=== PATIENT | male | born 1935 | race Native Hawaiian/Other Pacific Islander ===

== ENCOUNTER 2022-07-23 11:47 | Inpatient (IN) | payer OTHER ==
[~2022-07-23] VITALS: Ht 160 cm; Wt 69.4 kg
[2022-07-23] MEDS ORDERED: ACETAMINOPHEN 500 MG TABLET PO ONE (12:00)
[2022-07-23] MEDS ORDERED: 0.9% SODIUM CHLORIDE 10 ML SYRINGE IVP PRN (12:00)
[2022-07-23] MEDS ORDERED: CefTRIAXone 1 GM/DEXTROSE 50 ML IV ONE (12:00)
[2022-07-23] MEDS ORDERED: SODIUM CHLORIDE 0.9% 2,100 ML IV ONE (12:00)
[2022-07-23 12:07] LABS: BASOPHILS % (AUTO) 0.9 % (0.0-2.0); EOSINOPHILS % (AUTO) 0.7 % (1.0-6.0); HEMATOCRIT 47.7 % (41-53); HEMOGLOBIN 14.7 g/dL (13.5-17.5); LYMPHOCYTES # (AUTO) 1.1 K/uL (1.0-4.8); LYMPHOCYTES % (AUTO) 10.1 % (22.0-44.0); MEAN CORPUSCULAR HEMOGLOBIN 24.2 pg (26.0-34.0); MEAN CORPUSCULAR HGB CONC 30.8 G/dL (31.0-37.0); MEAN CORPUSCULAR VOLUME 79 fL (80-100); MONOCYTES # (AUTO) 0.9 K/uL (0.1-1.0); MONOCYTES % (AUTO) 8.2 % (2.0-9.0); NEUTROPHILS # (AUTO) 8.7 K/uL (1.8-7.7); NEUTROPHILS % (AUTO) 80.1 % (40.0-70.0); PLATELET COUNT (AUTO) 195 K/uL (150-450); RED BLOOD CELL COUNT(AUTO) 6.06 MIL/uL (4.50-5.90); RED CELL DISTRIBUTION WIDTH 17.9 % (11.5-14.5)
[2022-07-23] MEDS ORDERED: ACETAMINOPHEN 1000 MG/ISO-OSM 100 ML IV ONE (12:15)
[2022-07-23 12:17] LABS: ANION GAP 12 mmol/L (8-16); CALCIUM, TOTAL 9.6 mg/dL (8.8-10.5); CARBON DIOXIDE 28 mmol/L (22-29); CHLORIDE 101 mmol/L (98-107); CREATININE 1.18 mg/dL (0.60-1.30); GLOMERULAR FILTR. RATE CALC 59 mL/min (>60); GLUCOSE,RANDOM 165 mg/dL (70-110); POTASSIUM 3.6 mmol/L (3.5-5.1); SODIUM SERUM 141 mmol/L (136-145)
[2022-07-23 12:19] LABS: INR 1.4 (0.9-1.1); PROTHROMBIN TIME 14.8 SEC (9.4-11.6)
[2022-07-23] MEDS ORDERED: LORazepam 2 MG/ML VIAL ONE (12:21)
[2022-07-23 12:23] LABS: ALANINE AMINOTRANSFERASE 35 U/L (12-78); ALBUMIN 3.6 g/dL (3.4-5.0); ALKALINE PHOSPHATASE 108 U/L (46-116); ASPARTATE AMINOTRANSFERASE 38 U/L (15-37); BILIRUBIN,TOTAL 0.9 mg/dL (0.1-1.0)
[2022-07-23 12:30] LABS: B-TYPE NATRIURETIC PEPTIDE 265 pg/mL (0-100)
[2022-07-23] MEDS ORDERED: LORazepam 2 MG/ML VIAL IVP ONE (12:30)
[2022-07-23 12:35] LABS: LACTIC ACID 2.9 mmol/L (0.4-2.0)
[2022-07-23] MEDS: OXYGEN THERAPY IH SCH (12:40)
[2022-07-23 12:47] LABS: COVID AG,FIA SOURCE NASOPHARYNGEAL
[2022-07-23 12:54] LABS: APPEARANCE,URINE CLEAR (CLEAR); BILIRUBIN,URINE NEGATIVE (NEGATIVE); GLUCOSE, URINE (UA) >=1000 mg/dL (NEGATIVE); KETONES,URINE NEGATIVE (NEGATIVE); LEUKOCYTE ESTERASE ,URINE NEGATIVE (NEGATIVE); NITRATE,URINE NEGATIVE (NEGATIVE); OCCULT BLOOD,URINE MODERATE (NEGATIVE); PH,URINE 6.5 (5.0-8.0); PROTEIN,URINE 100-200,SEE CONFIRM mg/dL (NEGATIVE); SPECIFIC GRAVITIY, URINE 1.018 (1.003-1.030); UROBILINOGEN,URINE <=1.0 mg/dL (<=1.0)
[2022-07-23 13:00] LABS: SULFOSALICYLIC ACID,URINE 2+ (Negative)
[2022-07-23 13:01] LABS: BACTERIA,URINE None Seen /HPF (None Seen); WBC,URINE None Seen /HPF (0-5)
[2022-07-23 13:12] LABS: INFLUENZA TYPE A NEGATIVE FOR TYPE A (NEGATIVE); INFLUENZA TYPE B POSITIVE FOR TYPE B (NEGATIVE)
[2022-07-23] MEDS ORDERED: OSELTAMIVIR PHOSPHATE 6 MG/ML 5 ML SUSPENSION ORAL.SYG PO ONE (14:15)
[2022-07-23] MEDS ORDERED: LISI-663 PO (14:42)
[2022-07-23] MEDS ORDERED: TIOT185 IH (14:42)
[2022-07-23] MEDS ORDERED: EMPA25TA3 PO (14:42)
[2022-07-23] MEDS ORDERED: TRIA60LO13 TP (14:42)
[2022-07-23] MEDS ORDERED: INSULIN SQ (14:42)
[2022-07-23] MEDS ORDERED: METO25 PO (14:42)
[2022-07-23] MEDS ORDERED: GLIP10TA10 PO (14:42)
[2022-07-23] MEDS ORDERED: MICO45CR44 TP (14:42)
[2022-07-23] MEDS ORDERED: METF-1211 PO (14:42)
[2022-07-23] MEDS ORDERED: ALBU18HF12 IH (14:42)
[2022-07-23] MEDS ORDERED: PRAM0.258 PO (14:42)
[2022-07-23] MEDS ORDERED: FURO20 PO (14:42)
[2022-07-23] MEDS ORDERED: DABI150C2 PO (14:42)
[2022-07-23] MEDS ORDERED: ATOR10TA PO (14:42)
[2022-07-23] MEDS ORDERED: POTA8CAP20 PO (14:42)
[2022-07-23] MEDS ORDERED: FLUT16SP NASAL (14:42)
[2022-07-23] MEDS ORDERED: GABA-1181 PO (14:42)
[2022-07-23] MEDS ORDERED: ACETAMINOPHEN 325 MG TABLET PO PRN (17:30)
[2022-07-23] MEDS ORDERED: *CLINICAL-LEVOFLOXACIN IVPB DOSING CLINICAL ONE (17:30)
[2022-07-23] MEDS ORDERED: MAGNESIUM HYDROXIDE SUSPENSION 30 ML UDCUP PO PRN (17:30)
[2022-07-23] MEDS ORDERED: BISACODYL 10 MG RECTAL RECTAL SUPPOSITORY PR PRN (17:30)
[2022-07-23] MEDS ORDERED: ONDANSETRON HCL 4 MG/2 ML VIAL IVP PRN (17:30)
[2022-07-23] MEDS ORDERED: HYDROCODONE/ACETAMINOPHEN 5-325 MG TABLET PO PRN (17:30)
[2022-07-23] MEDS ORDERED: ZOLPIDEM TARTRATE 5 MG TABLET PO PRN (17:30)
[2022-07-23] MEDS ORDERED: MORPHINE SULFATE 2 MG/ML SYRINGE IVP PRN (17:30)
[2022-07-23] MEDS ORDERED: TIOT4MIS2 IH (17:46)
[2022-07-23] MEDS ORDERED: POTA-92 PO (17:46)
[2022-07-23] MEDS ORDERED: [UNRECOGNIZED DRUG - CODE] TP (17:46)
[2022-07-23] MEDS ORDERED: DABI110C PO (17:46)
[2022-07-23] MEDS ORDERED: NPH,100V SQ (17:46)
[2022-07-23] MEDS ORDERED: ALBU0.212 NEB (17:46)
[2022-07-23] MEDS ORDERED: TRIA15CR58 TP (17:46)
[2022-07-23] MEDS ORDERED: LEVOFLOXACIN 750 MG/D5% WATER 150 ML IV SCH (18:00)
[2022-07-23] MEDS: DOCUSATE SODIUM 100 MG CAPSULE PO SCH (21:00)
[2022-07-23] MEDS: METOPROLOL TARTRATE 25 MG TABLET PO SCH (21:00)
[2022-07-23] MEDS: OSELTAMIVIR PHOSPHATE 30 MG CAPSULE PO SCH ×2 (21:00→23:15)
[2022-07-23 21:20] VITALS: BP 160/86
[2022-07-23] MEDS: HydrALAZINE HCL 20 MG/ML VIAL IVP PRN (23:32)
[2022-07-23 23:40] VITALS: BP 173/104
[2022-07-24] MEDS ORDERED: HEPARIN SODIUM,PORCINE 5,000 UNITS/ML VIAL SQ SCH
[2022-07-24] MEDS ORDERED: DEXTROSE 50%-WATER 25 GM/50 ML SYRINGE IVP PRN
[2022-07-24] MEDS ORDERED: LORazepam 2 MG/ML VIAL IVP ONE ×3 (03:00→18:00)
[2022-07-24 05:37] VITALS: BP 132/75
[2022-07-24 07:25] LABS: BASOPHILS % (AUTO) 0.3 % (0.0-2.0); EOSINOPHILS % (AUTO) 0.1 % (1.0-6.0); HEMOGLOBIN 13.5 g/dL (13.5-17.5); LYMPHOCYTES # (AUTO) 1.2 K/uL (1.0-4.8); LYMPHOCYTES % (AUTO) 8.4 % (22.0-44.0); MEAN CORPUSCULAR HGB CONC 30.6 G/dL (31.0-37.0); MEAN CORPUSCULAR VOLUME 79 fL (80-100); MONOCYTES # (AUTO) 1.2 K/uL (0.1-1.0); MONOCYTES % (AUTO) 8.6 % (2.0-9.0); NEUTROPHILS # (AUTO) 11.4 K/uL (1.8-7.7); NEUTROPHILS % (AUTO) 82.6 % (40.0-70.0); PLATELET COUNT (AUTO) 166 K/uL (150-450); RED BLOOD CELL COUNT(AUTO) 5.61 MIL/uL (4.50-5.90)
[2022-07-24 07:42] LABS: ANION GAP 13 mmol/L (8-16); CALCIUM, TOTAL 8.5 mg/dL (8.8-10.5); CARBON DIOXIDE 23 mmol/L (22-29); CHLORIDE 103 mmol/L (98-107); CREATININE 0.79 mg/dL (0.60-1.30); GLOMERULAR FILTR. RATE CALC > 60 mL/min (>60); GLUCOSE,RANDOM 50 mg/dL (70-110); POTASSIUM 3.4 mmol/L (3.5-5.1); SODIUM SERUM 139 mmol/L (136-145)
[2022-07-24] MEDS ORDERED: HEPARIN SODIUM,PORCINE 5,000 UNITS/ML VIAL IVP PRN ×2 (08:15)
[2022-07-24 08:36] VITALS: BP 130/78
[2022-07-24 08:41] LABS: GLUCOMETER DEV NAME(LOC) 5S.1B; GLUCOSE,POINT OF CARE 47 MG/DL (70-110)
[2022-07-24 08:41] LABS: GLUCOMETER DEV NAME(LOC) 5S.1B; GLUCOSE,POINT OF CARE 126 MG/DL (70-110)
[2022-07-24] MEDS: OSELTAMIVIR PHOSPHATE 30 MG CAPSULE PO SCH ×2 (08:43→20:36)
[2022-07-24] MEDS: METOPROLOL TARTRATE 25 MG TABLET PO SCH ×2 (08:43→20:35)
[2022-07-24] MEDS: PANTOPRAZOLE SODIUM 40 MG DR TABLET PO SCH (08:43)
[2022-07-24] MEDS: DOCUSATE SODIUM 100 MG CAPSULE PO SCH ×2 (08:43→21:00)
[2022-07-24] MEDS: ATORVASTATIN CALCIUM 10 MG TABLET PO SCH (08:43)
[2022-07-24] MEDS: OXYGEN THERAPY IH SCH (08:45)
[2022-07-24 09:00] LABS: BASOPHILS % (AUTO) 0.3 % (0.0-2.0); EOSINOPHILS % (AUTO) 0.1 % (1.0-6.0); HEMATOCRIT 44.7 % (41-53); HEMOGLOBIN 13.8 g/dL (13.5-17.5); LYMPHOCYTES % (AUTO) 7.8 % (22.0-44.0); MEAN CORPUSCULAR HEMOGLOBIN 24.2 pg (26.0-34.0); MEAN CORPUSCULAR HGB CONC 30.8 G/dL (31.0-37.0); MEAN CORPUSCULAR VOLUME 79 fL (80-100); MONOCYTES % (AUTO) 7.9 % (2.0-9.0); NEUTROPHILS # (AUTO) 10.5 K/uL (1.8-7.7); NEUTROPHILS % (AUTO) 83.9 % (40.0-70.0); PLATELET COUNT (AUTO) 155 K/uL (150-450); RED BLOOD CELL COUNT(AUTO) 5.69 MIL/uL (4.50-5.90); RED CELL DISTRIBUTION WIDTH 18.1 % (11.5-14.5)
[2022-07-24 09:18] LABS: INR 1.3 (0.9-1.1); PROTHROMBIN TIME 13.4 SEC (9.4-11.6)
[2022-07-24] MEDS ORDERED: POTASSIUM CHL 10 MEQ/WATER 50 ML IV PRN (09:30)
[2022-07-24] MEDS: POTASSIUM CHLORIDE 20 MEQ ER TABLET PO PRN (10:25)
[2022-07-24] MEDS: HEPARIN SODIUM 25000 UNITS/D5W 250 ML IV PRN (10:40)
[2022-07-24 11:18] VITALS: BP 131/84
[2022-07-24] MEDS: INSULIN LISPRO 100 UNITS/ML SQ PRN (12:09)
[2022-07-24 15:22] VITALS: BP 138/80
[2022-07-24] MEDS ORDERED: LEVALBUTEROL HCL 0.63 MG/3 ML NEB SOLUTION NEB PRN (15:30)
[2022-07-24] MEDS ORDERED: LORazepam 2 MG/ML VIAL ONE (17:40)
[2022-07-24] MEDS ORDERED: HALOPERIDOL LACTATE 5 MG/ML VIAL IVP PRN (17:45)
[2022-07-24] MEDS ORDERED: LEVOFLOXACIN 750 MG/D5% WATER 150 ML IV SCH (18:00)
[2022-07-24 19:50] VITALS: BP 154/114
[2022-07-24 19:56] LABS: GLUCOMETER DEV NAME(LOC) 5N.2C; GLUCOSE,POINT OF CARE 304 MG/DL (70-110)
[2022-07-24 19:56] LABS: GLUCOMETER DEV NAME(LOC) 5N.2C; GLUCOSE,POINT OF CARE 217 MG/DL (70-110)
[2022-07-24] MEDS: BUDESONIDE 0.5 MG/2 ML NEB SOLUTION NEB SCH (21:00)
[2022-07-24] MEDS ORDERED: DIGOXIN 250 MCG/ML 2 ML AMP IVP ONE (22:15)
[2022-07-24 23:00] VITALS: BP 151/82
[2022-07-25] VITALS (8 sets, daily range): BP systolic 126–183; BP diastolic 62–126
[2022-07-25] MEDS ORDERED: DIGOXIN 250 MCG/ML 2 ML AMP IVP ONE (02:00)
[2022-07-25] MEDS: HydrALAZINE HCL 20 MG/ML VIAL IVP PRN (02:34)
[2022-07-25] MEDS ORDERED: HALOPERIDOL LACTATE 5 MG/ML VIAL IVP PRN ×2 (02:45→20:45)
[2022-07-25 03:26] LABS: GLUCOMETER DEV NAME(LOC) 5S.2C; GLUCOSE,POINT OF CARE 220 MG/DL (70-110)
[2022-07-25 07:19] LABS: BASOPHILS % (AUTO) 0.5 % (0.0-2.0); EOSINOPHILS % (AUTO) 0.1 % (1.0-6.0); HEMATOCRIT 49.6 % (41-53); HEMOGLOBIN 15.4 g/dL (13.5-17.5); LYMPHOCYTES # (AUTO) 1.2 K/uL (1.0-4.8); LYMPHOCYTES % (AUTO) 11.9 % (22.0-44.0); MEAN CORPUSCULAR HEMOGLOBIN 24.4 pg (26.0-34.0); MEAN CORPUSCULAR VOLUME 79 fL (80-100); MONOCYTES # (AUTO) 1.2 K/uL (0.1-1.0); MONOCYTES % (AUTO) 11.5 % (2.0-9.0); NEUTROPHILS # (AUTO) 7.8 K/uL (1.8-7.7); PLATELET COUNT (AUTO) 185 K/uL (150-450); RED CELL DISTRIBUTION WIDTH 18.1 % (11.5-14.5)
[2022-07-25 07:41] LABS: GLUCOMETER DEV NAME(LOC) 5S.2C; GLUCOSE,POINT OF CARE 174 MG/DL (70-110)
[2022-07-25 07:45] LABS: CHOL/HDL RATIO 2.1 (4.2-7.3)
[2022-07-25 07:57] LABS: CALCIUM, TOTAL 9.5 mg/dL (8.8-10.5); CREATININE 1.21 mg/dL (0.60-1.30); POTASSIUM 3.4 mmol/L (3.5-5.1)
[2022-07-25] MEDS: BUDESONIDE 0.5 MG/2 ML NEB SOLUTION NEB SCH ×2 (08:11→20:52)
[2022-07-25] MEDS: OSELTAMIVIR PHOSPHATE 30 MG CAPSULE PO SCH ×2 (08:30→20:04)
[2022-07-25] MEDS: DOCUSATE SODIUM 100 MG CAPSULE PO SCH ×2 (08:30→20:04)
[2022-07-25] MEDS: METOPROLOL TARTRATE 25 MG TABLET PO SCH ×2 (08:30→20:04)
[2022-07-25] MEDS: ATORVASTATIN CALCIUM 10 MG TABLET PO SCH (08:31)
[2022-07-25] MEDS: PANTOPRAZOLE SODIUM 40 MG DR TABLET PO SCH (08:31)
[2022-07-25] MEDS ORDERED: AMIODARONE HCL 150 MG in DEXTROSE 5%-WATER 97 ML IV ONE (09:15)
[2022-07-25] MEDS ORDERED: AMIODARONE HCL 360 MG in DEXTROSE 5%-WATER 242.8 ML IV ONE (09:15)
[2022-07-25] MEDS ORDERED: SODIUM CHLORIDE 0.9% 250 ML IV ONE (10:25)
[2022-07-25] MEDS: HEPARIN SODIUM 25000 UNITS/D5W 250 ML IV PRN (10:57)
[2022-07-25] MEDS: POTASSIUM CHLORIDE 20 MEQ ER TABLET PO PRN (11:18)
[2022-07-25] MEDS: INSULIN LISPRO 100 UNITS/ML SQ PRN ×3 (11:52→20:13)
[2022-07-25 11:56] LABS: GLUCOMETER DEV NAME(LOC) 5N.1C; GLUCOSE,POINT OF CARE 211 MG/DL (70-110)
[2022-07-25] MEDS ORDERED: POTASSIUM CHLORIDE 20 MEQ ER TABLET PO PRN (15:15)
[2022-07-25] MEDS ORDERED: POTASSIUM CHL 10 MEQ/WATER 50 ML IV PRN (15:15)
[2022-07-25] MEDS ORDERED: AMIODARONE HCL 540 MG in DEXTROSE 5%-WATER 239.2 ML IV ONE (15:15)
[2022-07-25 19:56] LABS: GLUCOMETER DEV NAME(LOC) 5S.1B; GLUCOSE,POINT OF CARE 202 MG/DL (70-110)
[2022-07-25 23:50] LABS: GLUCOMETER DEV NAME(LOC) 5S.2C; GLUCOSE,POINT OF CARE 171 MG/DL (70-110)
[2022-07-26 04:47] VITALS: BP 150/91
[2022-07-26] MEDS: INSULIN LISPRO 100 UNITS/ML SQ PRN ×2 (06:15→11:50)
[2022-07-26 06:32] LABS: BASOPHILS % (AUTO) 0.7 % (0.0-2.0); EOSINOPHILS % (AUTO) 1.4 % (1.0-6.0); HEMATOCRIT 51.3 % (41-53); HEMOGLOBIN 15.9 g/dL (13.5-17.5); LYMPHOCYTES # (AUTO) 1.4 K/uL (1.0-4.8); LYMPHOCYTES % (AUTO) 12.7 % (22.0-44.0); MEAN CORPUSCULAR HEMOGLOBIN 24.3 pg (26.0-34.0); MEAN CORPUSCULAR VOLUME 78 fL (80-100); MONOCYTES # (AUTO) 1.3 K/uL (0.1-1.0); MONOCYTES % (AUTO) 12.3 % (2.0-9.0); NEUTROPHILS # (AUTO) 7.9 K/uL (1.8-7.7); NEUTROPHILS % (AUTO) 72.9 % (40.0-70.0); PLATELET COUNT (AUTO) 184 K/uL (150-450); RED BLOOD CELL COUNT(AUTO) 6.55 MIL/uL (4.50-5.90)
[2022-07-26 06:41] LABS: CALCIUM, TOTAL 9.5 mg/dL (8.8-10.5); CREATININE 1.18 mg/dL (0.60-1.30); POTASSIUM 3.5 mmol/L (3.5-5.1)
[2022-07-26 08:01] VITALS: BP 188/119
[2022-07-26] MEDS: METOPROLOL TARTRATE 25 MG TABLET PO SCH (08:44)
[2022-07-26] MEDS: DOCUSATE SODIUM 100 MG CAPSULE PO SCH (08:44)
[2022-07-26] MEDS ORDERED: AMIODARONE HCL 750 MG in DEXTROSE 5%-WATER 485 ML IV SCH ×2 (08:45→11:00)
[2022-07-26] MEDS: PANTOPRAZOLE SODIUM 40 MG DR TABLET PO SCH (08:46)
[2022-07-26] MEDS: OSELTAMIVIR PHOSPHATE 30 MG CAPSULE PO SCH (08:46)
[2022-07-26] MEDS: ATORVASTATIN CALCIUM 10 MG TABLET PO SCH (08:46)
[2022-07-26] MEDS ORDERED: AMIODARONE HCL 200 MG TABLET PO SCH (09:00)
[2022-07-26] MEDS: BUDESONIDE 0.5 MG/2 ML NEB SOLUTION NEB SCH (09:56)
[2022-07-26] MEDS: HEPARIN SODIUM 25000 UNITS/D5W 250 ML IV PRN (10:12)
[2022-07-26 11:39] VITALS: BP 173/95
[2022-07-26] MEDS: HydrALAZINE HCL 20 MG/ML VIAL IVP PRN (12:11)
[2022-07-26 15:13] VITALS: BP 139/79
[2022-07-26] MEDS ORDERED: LEVOFLOXACIN 750 MG/D5% WATER 150 ML IV SCH (18:00)
[2022-07-26 23:36] LABS: GLUCOMETER DEV NAME(LOC) 5S.1B; GLUCOSE,POINT OF CARE 182 MG/DL (70-110)
[2022-07-26 23:36] LABS: GLUCOMETER DEV NAME(LOC) 5S.1B; GLUCOSE,POINT OF CARE 192 MG/DL (70-110)
[2022-07-27] MEDS ORDERED: AMIODARONE HCL 750 MG in DEXTROSE 5%-WATER 485 ML IV SCH (08:00)
== END 2022-07-26 16:11 | disposition short-term general hospital (02) | DRG 871 ==
LOC: EMS 11:47 → 5N 18:14 → 5S 07-24 18:30
PROVIDERS: ADMIT Internal Medicine; ATTEND Internal Medicine
DX: A41.89 Other specified sepsis (principal); G93.41 Metabolic encephalopathy; J10.00 Influenza due to other identified influenza virus with unspecified type of pneumonia; J96.01 Acute respiratory failure with hypoxia; I21.A1 Myocardial infarction type 2; E44.0 Moderate protein-calorie malnutrition; J44.1 Chronic obstructive pulmonary disease with (acute) exacerbation; F05 Delirium due to known physiological condition; I48.20 Chronic atrial fibrillation, unspecified; Z68.27 Body mass index [BMI] 27.0-27.9, adult; Z20.822 Contact with and (suspected) exposure to COVID-19; I10 Essential (primary) hypertension; E78.5 Hyperlipidemia, unspecified; E87.6 Hypokalemia; J10.1 Influenza due to other identified influenza virus with other respiratory manifestations; E11.649 Type 2 diabetes mellitus with hypoglycemia without coma; Z78.1 Physical restraint status; Z85.51 Personal history of malignant neoplasm of bladder; Z99.81 Dependence on supplemental oxygen
CPT/HCPCS: 51702; 70450; 71045; 71250; 80048; 80053; 80061; 81001; 81002; 82962; 83605; 83880; 84132; 84145; 84484; 85025; 85610; 85730; 87040; 87804; 93005; 93306; 94640; 99291; J0131; J0282; J0360; J0696; J1160; J1630; J1644; J1956; J2060; J7030; J7050; J7060; Q9967; 36415-L1; 36415-TC; Z7610